=== PATIENT | male | born 1960 | race African-American/Black ===

== ENCOUNTER 2019-02-22 05:41 | Day surgery (SDC) | payer MEDICAID ==
[~2019-02-22] VITALS: Ht 172.7 cm; Wt 88.9 kg
[~2019-02-22 05:41] MED LIST: AMLO10TA80 PO; ATOR40TA70 PO; FAMO20TA8 PO; LISI-649 PO; OMEP20TA2 PO
[2019-02-22] MEDS ORDERED: LACTATED RINGERS 1,000 ML IV SCH (06:00)
[2019-02-22] MEDS ORDERED: BUPIVACAINE/EPINEPH/PF 0.25%/0.0005 10ML ONE (06:45)
[2019-02-22] MEDS ORDERED: MORPHINE SULFATE/PF 1MG/ML 10ML AMP ONE (06:46)
[2019-02-22] MEDS ORDERED: MIDAZOLAM HCL 2 MG/2 ML VIAL ONE (07:50)
[2019-02-22] MEDS ORDERED: FENTANYL CITRATE/PF 50MCG/ML 2ML VIAL ONE (07:50)
[2019-02-22] MEDS ORDERED: NEOSTIGMINE METHYLSULFATE 1MG/ML 10 ML VIAL ONE (07:50)
[2019-02-22] MEDS ORDERED: ROCURONIUM BROMIDE 10MG/ML VIAL 5ML IV ONE (07:50)
[2019-02-22] MEDS ORDERED: PROPOFOL 200MG/20ML VIAL IV ONE (07:50)
[2019-02-22] MEDS ORDERED: GLYCOPYRROLATE 0.2 MG/ML 2ML VIAL ONE (07:51)
[2019-02-22] MEDS ORDERED: SODIUM CHLORIDE 0.9% 10ML VIAL ONE (07:55)
[2019-02-22] MEDS ORDERED: EPHEDRINE SULFATE 50MG/ML VIAL ONE (07:55)
[2019-02-22] MEDS ORDERED: ONDANSETRON HCL 4MG/2ML INJ ONE (07:55)
[2019-02-22] MEDS ORDERED: SUCCINYLCHOLINE CHLORIDE 200MG/10ML IV ONE (07:55)
[2019-02-22] MEDS ORDERED: CEFAZOLIN SODIUM 1000MG/VIAL ONE (07:55)
[2019-02-22] MEDS ORDERED: METOCLOPRAMIDE HCL 10MG/2ML VIAL ONE (07:55)
[2019-02-22] MEDS ORDERED: DEXAMETHASONE 4MG/ML 1ML VIAL ONE (07:55)
[2019-02-22] MEDS ORDERED: PHENYLEPHRINE HCL 10 MG/ML 1ML (IV VIAL) IV ONE (07:55)
[2019-02-22] MEDS ORDERED: FENTANYL CITRATE/PF 50MCG/ML 5ML VIAL ONE (08:02)
[2019-02-22] MEDS ORDERED: LABETALOL HCL 5MG/ML VIAL 20ML IV ONE (09:09)
[2019-02-22] MEDS ORDERED: SODIUM CHLORIDE 0.9% 1,000 ML IV ONE (09:16)
[2019-02-22] MEDS ORDERED: ONDANSETRON HCL 4MG/2ML INJ IV PRN (09:30)
[2019-02-22] MEDS ORDERED: HYDROCODONE/ACETAMINOPHEN 10/325MG TABLET PO PRN (09:30)
[2019-02-22] MEDS ORDERED: HYDROMORPHONE HCL/PF 2MG/ML CPJ IV PRN (09:30)
[2019-02-22] MEDS ORDERED: MORPHINE SULFATE 2 MG/ML CPJ (NOT FOR IM USE) IV PRN (09:30)
[2019-02-22] MEDS ORDERED: MEPERIDINE HCL/PF 25MG/ML CPJ IV PRN (09:30)
== END 2019-02-22 11:25 | disposition home or self-care (01) ==
LOC: OR 05:41
PROVIDERS: ATTEND Orthopaedic Surgery
DX: M23.204 Derangement of unspecified medial meniscus due to old tear or injury, left knee (principal); M23.201 Derangement of unspecified lateral meniscus due to old tear or injury, left knee; E78.00 Pure hypercholesterolemia, unspecified; E78.5 Hyperlipidemia, unspecified; I10 Essential (primary) hypertension; M94.262 Chondromalacia, left knee; M65.862 Other synovitis and tenosynovitis, left lower leg; Z79.899 Other long term (current) drug therapy; X58.XXXA Exposure to other specified factors, initial encounter; Y93.89 Activity, other specified; Y92.89 Other specified places as the place of occurrence of the external cause; Y99.8 Other external cause status
CPT/HCPCS: 29880; 88304; 88311; 97162; 97535; J0171; J0330; J0690; J1100; J2250; J2274; J2370; J2405; J2704; J2710; J2765; J3010; J3490